=== PATIENT | female | born 1990 | race Caucasian/White ===

== ENCOUNTER 2025-05-10 09:34 | Emergency (ER) | payer SELFPAY ==
[2025-05-10 09:41] VITALS: BP 113/65; PULSE 63; O2SAT 98; BMI 21.6
--- NOTE | 2025-05-10 09:50 | US_ITS ---
[place] [id number] Patient Name: JOHN DREW MRN: [id number] date: 1990 Sex: F Assigned Patient Location: ED.MAIN Current Patient Location: Accession/Order Number: [id number] Exam Date: 05/10/2025 09:51 Report Date: 05/10/2025 11:31 At the request of: HUGO HERNANDEZ DO Procedure: US abdomen limited CLINICAL DATA: Epigastric and left upper quadrant pain for the past 4 days LIMITED RIGHT UPPER QUADRANT ABDOMINAL ULTRASOUND COMPARISON: None The gallbladder is physiologically distended without shadowing calculi, wall thickening or pericholecystic fluid. No intra- or extrahepatic biliary dilatation is evident. The common duct measures 4 - 5 mm. The liver is normal in echogenicity. No intrahepatic masses are seen. There is appropriate hepatopetal flow within the main portal vein. The pancreas shows no significant sonographic abnormality. Cursory evaluation of the right kidney reveals no hydronephrosis or fluid within Funez's pouch. US/US right upper quadrant IMPRESSION: NEGATIVE ULTRASOUND OF THE RIGHT UPPER QUADRANT. LIMITED LEFT UPPER QUADRANT ABDOMINAL ULTRASOUND COMPARISON: None The left kidney measures 10.4 cm in craniocaudal dimension. There are no shadowing calculi, renal mass lesions or hydronephrosis. The spleen is normal in size and echogenicity. Craniocaudal dimension is 9.2 cm. There is no left upper quadrant ascites. IMPRESSION: WITHIN NORMAL LIMITS. Impression dictated by: Maya Mcconnell M.D. 05/10/2025 11:31 AM Dictation Location: [place] [id number] Electronically authenticated by: [id number] Y Date: 05/10/2025 11:31
--- NOTE | 2025-05-10 09:54 | ED.GENADUL1 ---
HPI HPI - General Adult General Chief complaint: Abdominal Pain Stated complaint: ABDOMINAL PAIN Time Seen by Provider: 05/10/25 09:36 Source: patient Mode of arrival: walk-in Limitations: no limitations History of Present Illness HPI narrative: Patient is a healthy 34-year-old female presenting to the emergency department for concerns of epigastric pain. Patient states that her symptoms started approximately 4 to 5 days ago. She states that intermittently throughout the day she notices epigastric pain. She states it is like a squeezing, sharp pain. She states that she noticed the pain mostly after meals. She denies ever having pain like this in the past. She denies any associated nausea or vomiting. No diarrhea or constipation. No fevers or chills. No chest pain or shortness of breath. Denies being , she has an IUD. She denies history of gallstones or prior intra-abdominal surgeries. She denies alcohol use, her last drink was 9 months ago. She denies smoking or NSAID use. Denies dysuria or hematuria. Related Data Home Medications ?Medication ?Instructions ?Recorded ?Confirmed No Known Home Medications 05/10/25 05/10/25 Allergies Allergy/AdvReac Type Severity Reaction Status Date / Time cephalexin (From Keflex) AdvReac Mild Hives Verified 05/10/25 09:44 Opioid HPI Opioid Management Most Recent Opioid Data: Last Pain Scale 4 Today, 09:41 Review of Systems ROS Status of ROS 10 or more systems reviewed and unremarkable except as noted in history and below PFSH PFSH Social History Little interest or pleasure in doing things: not at all Feeling down, depressed, or hopeless: not at all Exam Narrative Exam Narrative: CONSTITUTIONAL: Well-appearing, answering questions and following commands appropriately SKIN: Was warm and dry. EYES: Sclerae white. No conjunctival pallor. EARS, NOSE, THROAT: Moist oral mucosa. RESPIRATORY: Clear to auscultation bilaterally, no wheezes, crackles, or stridor, no use of accessory muscles CARDIOVASCULAR: Normal rate and regular rhythm. There is no S3, S4, murmur, rub. GASTROINTESTINAL: There is mild tenderness to palpation in the epigastrium. No right upper quadrant tenderness. Negative Ochoa sign. No rebound tenderness or guarding. No tenderness at McBurney's point. MUSCULOSKELETAL: No peripheral edema. NEUROLOGIC: Patient is awake and alert. Facies were symmetrical. Constitutional Vital Signs, click to edit/add: Last Vital Signs Temp 97.8 F 05/10/25 11:01 Pulse 63 05/10/25 09:41 Resp 18 05/10/25 09:41 BP 113/65 05/10/25 09:41 Pulse Ox 98 05/10/25 09:41 O2 Del Method Room Air 05/10/25 09:41 Course Vital Signs Vital signs: Vital Signs Pulse Rate 63 05/10/25 09:41 Respiratory Rate 18 05/10/25 09:41 Blood Pressure 113/65 05/10/25 09:41 Pulse Oximetry 98 05/10/25 09:41 Oxygen Delivery Method Room Air 05/10/25 09:41 Temperature 97.8 F 05/10/25 11:01 Pulse Rate 63 05/10/25 09:41 Respiratory Rate 18 05/10/25 09:41 Blood Pressure 113/65 05/10/25 09:41 Pulse Oximetry 98 05/10/25 09:41 Oxygen Delivery Method Room Air 05/10/25 09:41 Medical Decision Making [facility] Narrative Medical decision making narrative: Patient is a healthy 34-year-old female presenting to the emergency department with intermittent epigastric pain x 4 days. Vital signs on arrival are within normal limits. She is afebrile and hemodynamically stable. Examination as noted above. Differential diagnosis includes gastritis, peptic ulcer disease, GERD, symptomatic cholelithiasis, or pancreatitis. Patient's exam is not consistent with surgical etiologies of abdominal pain such as appendicitis, cholecystitis, or perforated viscus. IV was established and laboratory studies were obtained. Abdominal ultrasound was ordered. She was given IV famotidine, IV Zofran, and oral Maalox/viscous lidocaine for symptomatic treatment. Laboratory studies were unremarkable. No significant electrolyte or metabolic derangement. No evidence of acute kidney injury. No anemia, leukocytosis, or thrombocytopenia. No transaminitis or hyperbilirubinemia. test negative. Lipase nonelevated. Abdominal ultrasound independently reviewed and interpreted by myself and radiology demonstrated no acute abnormalities. There is no evidence of cholelithiasis or splenic/renal masses. On reevaluation, patient states she does not feel significantly improved. Although I cannot identify the exact etiology behind the patient's symptoms, I do not believe she has any immediate life-threatening conditions. She has no significant tenderness or peritoneal signs on repeat abdominal exam. Her presentation may be secondary to peptic ulcer disease. Instructed to follow-up with a primary care physician for further care. Return precautions were given including any new or concerning symptoms. Patient understands and agrees to the plan. FINAL IMPRESSION: #Acute epigastric abdominal pain DISPOSITION: Discharged home CONDITION: Good Medical Records Medical records reviewed: Yes I reviewed the patient's medical records Lab Data Lab results reviewed: Yes I reviewed the patient's lab results Labs: Lab Results 05/10/25 Range/Units 09:57 WBC 5.8 (4.0-11.0) 10^3/uL RBC 4.68 (4.20-5.40) 10^6/uL Hgb 12.3 (12.0-16.0) g/dL Hct 38.1 (36.0-48.0) % MCV 81.4 (81.0-99.0) fL MCH 26.3 L (26.7-34.0) pg MCHC 32.3 (29.9-35.2) g/dL RDW 17.1 H (11.0-15.0) % Plt Count 187 (150-450) 10^3/uL MPV 10.6 (9.5-13.5) fL Neut % (Auto) 56.1 (43.0-75.0) % Lymph % (Auto) 35.2 (20.5-60.0) % [place] % (Auto) 5.4 (1.7-12.0) % Eos % (Auto) 2.8 (0.9-7.0) % Baso % (Auto) 0.3 (0.2-2.0) % Neut # (Auto) 3.3 (1.4-6.5) 10^3/uL Lymph # (Auto) 2.0 (1.2-3.8) 10^3/uL [place] # (Auto) 0.3 (0.3-0.8) 10^3/uL Eos # (Auto) 0.2 (0.0-0.7) 10^3/uL Baso # (Auto) 0.0 (0.0-0.1) 10^3/uL Abs Immat Gran (auto) 0.01 (0.00-0.03) 10^3/uL Imm/Tot Granulo (auto) 0.2 (0.0-0.5) % Sodium 144 (136-145) mmol/L Potassium 4.0 (3.5-5.1) mmol/L Chloride 109 H (98-107) mmol/L Carbon Dioxide 24.9 (21.0-32.0) mmol/L Anion Gap 14.1 BUN 12.0 (7.0-18.0) mg/dL Creatinine 0.58 (0.55-1.02) mg/dL Est GFR ( Amer) >60 (>=60 mL/min/1.73m^2) Est GFR (Non-Af Amer) >60 (>=60 mL/min/1.73m^2) BUN/Creatinine Ratio 20.7 Glucose 100 (74-106) mg/dL Calcium 8.9 (8.5-10.1) mg/dL Total Bilirubin 0.5 (0.2-1.0) mg/dL AST 20 (15-37) U/L ALT 19 (14-59) U/L Alkaline Phosphatase 63 (46-116) U/L Total Protein 7.4 (6.4-8.2) g/dL Albumin 4.2 (3.4-5.0) g/dL Globulin 3.2 g/dL Albumin/Globulin Ratio 1.3 Lipase 33.0 (16.0-77.0) U/L Serum HCG, Qual Negative (NEGATIVE) Imaging Data US - abdomen: Attestation: I personally reviewed and interpreted this imaging study as follows: Discharge Plan Discharge Chief Complaint: Abdominal Pain Clinical Impression: Acute epigastric pain Patient Disposition: Home, Self-Care Time of Disposition Decision: 11:00 Condition: Good Mode of Transportation: Private Vehicle Prescriptions / Home Meds: No Action No Known Home Medications Print Language: Kinyarwanda Instructions: Acute Abdominal Pain (ED) Additional Instructions: Follow up with PCP should symptoms persist. Referrals: Physician,Non-Staff, MD [Primary Care Provider] - 1 week
[2025-05-10 10:09] LABS: Hematocrit 38.1 % (36.0-48.0); Hemoglobin 12.3 g/dL (12.0-16.0); Immature Granulocytes Abs Auto 0.01 10^3/uL (0.00-0.03); Immature Granulocytes Pct Auto 0.2 % (0.0-0.5); Lymphocytes Absolute Auto 2.0 10^3/uL (1.2-3.8); Mean Corpuscular HGB Conc 32.3 g/dL (29.9-35.2); Mean Corpuscular Hemoglobin 26.3 pg (26.7-34.0); Mean Corpuscular Volume 81.4 fL (81.0-99.0); Platelet Count 187 10^3/uL (150-450); Red Blood Count 4.68 10^6/uL (4.20-5.40); White Blood Count 5.8 10^3/uL (4.0-11.0)
[2025-05-10] MEDS: FAMOTIDINE/PF 20 MG/2 ML VIAL IV (10:16)
[2025-05-10] MEDS: lidocaine HCL 15 ML, MAG HYDROX/ALUMINUM HYD/SIMETH 30 ML, HYOSCYAMINE SULFATE 0.25 MG PO (10:17)
[2025-05-10 10:27] LABS: Alanine Aminotransferase 19 U/L (14-59); Albumin Globulin Ratio 1.3; Albumin Level 4.2 g/dL (3.4-5.0); Alkaline Phosphatase 63 U/L (46-116); Anion Gap 14.1; Aspartate Amino Transferase 20 U/L (15-37); Blood Urea Nitrogen 12.0 mg/dL (7.0-18.0); Calcium 8.9 mg/dL (8.5-10.1); Carbon Dioxide 24.9 mmol/L (21.0-32.0); Chloride 109 mmol/L (98-107); Estimated GFR (African America >60 (>=60 mL/min/1.73m^2); Estimated GFR (Non-African Ame >60 (>=60 mL/min/1.73m^2); Globulin 3.2 g/dL; Glucose 100 mg/dL (74-106); Lipase 33.0 U/L (16.0-77.0); Potassium 4.0 mmol/L (3.5-5.1); Sodium 144 mmol/L (136-145); Total Protein 7.4 g/dL (6.4-8.2)
--- NOTE | 2025-05-10 10:48 | US_ITS ---
[facility] [place] [id number] Patient Name: JOHN DREW MRN: [id number] date: 1990 Sex: F Assigned Patient Location: ED.MAIN Current Patient Location: Accession/Order Number: [id number] Exam Date: 05/10/2025 09:51 Report Date: 05/10/2025 11:31 At the request of: HUGO HERNANDEZ DO Procedure: US abdomen limited CLINICAL DATA: Epigastric and left upper quadrant pain for the past 4 days LIMITED RIGHT UPPER QUADRANT ABDOMINAL ULTRASOUND COMPARISON: None The gallbladder is physiologically distended without shadowing calculi, wall thickening or pericholecystic fluid. No intra- or extrahepatic biliary dilatation is evident. The common duct measures 4 - 5 mm. The liver is normal in echogenicity. No intrahepatic masses are seen. There is appropriate hepatopetal flow within the main portal vein. The pancreas shows no significant sonographic abnormality. Cursory evaluation of the right kidney reveals no hydronephrosis or fluid within Funez's pouch. US/US abdomen limited IMPRESSION: NEGATIVE ULTRASOUND OF THE RIGHT UPPER QUADRANT. LIMITED LEFT UPPER QUADRANT ABDOMINAL ULTRASOUND COMPARISON: None The left kidney measures 10.4 cm in craniocaudal dimension. There are no shadowing calculi, renal mass lesions or hydronephrosis. The spleen is normal in size and echogenicity. Craniocaudal dimension is 9.2 cm. There is no left upper quadrant ascites. IMPRESSION: WITHIN NORMAL LIMITS. Impression dictated by: Maya Mcconnell M.D. 05/10/2025 11:31 AM Dictation Location: [place] [address] Electronically authenticated by: [id number] Y Date: 05/10/2025 11:31
[2025-05-10 11:01] VITALS: TEMP 36.6
== END 2025-05-10 11:18 | disposition home or self-care (01) ==
PROVIDERS: Emergency Provider Student in an Organized Health Care Education/Training Program
DX: R10.13 Epigastric pain (principal); Z97.5 Presence of (intrauterine) contraceptive device
CPT/HCPCS: 36415; 76705; 80053; 83690; 84703; 85025; 96374; 96375; 99284; J2405; J3490